=== PATIENT | male | born 1990 | race Caucasian/White ===

== ENCOUNTER → 2020-10-25 | Outpatient (CLI) | payer OTHER ==
[~2020-10-25] MED LIST: BACTROBAN OINT22 GM EXT; COLACE100 MG PO; IBUPROFEN400 MG PO; NORCO 7.5-3251 EACH PO; PERCOCET 10-321 EACH PO; VIBRAMYCIN100 MG PO
== END ==
LOC: RT 15:42
DX: Z01.810 Encounter for preprocedural cardiovascular examination (principal); L05.91 Pilonidal cyst without abscess
CPT/HCPCS: 93005